=== PATIENT | female | born 1985 | race American Indian/Alaskan Native ===

== ENCOUNTER 2017-12-10 19:03 | Emergency (ER) | payer SELFPAY ==
[2017-12-10 19:26] VITALS: BP 137/71
--- NOTE | 2017-12-10 22:37 | Emergency Department Report ---
ED ENT HPI - General Chief complaint: Sore Throat Stated complaint: TONGUE/THROAT SWOLLEN Time Seen by Provider: 12/10/17 22:01 Source: patient Mode of arrival: Ambulatory Limitations: No Limitations - History of Present Illness Initial comments: This is a 32-year-old -[place] female presents with sore throat for 4 days. Patient reports he feels like her tongue is swollen and severe Pain with Swallowing. Patient states she is having difficulty swallowing solid foods but able to drink liquids. She is taking Tylenol for pain control with no improvement of symptoms. Patient reports swelling was one week ago with upper respiratory infection. Patient denies history, fever, chest pain, shortness of breath, body aches, sinus congestion, cough, and nausea or vomiting. MD complaint: sore throat, difficulty swallowing Onset/Timin -: days(s) Severity: moderate Severity scale (0 -10): 7 Quality: aching Consistency: constant Improves with: none Worsens with: swallowing, eating Associated Symptoms: pain with swallowing, sore throat - Related Data Previous Rx's Medication Instructions Recorded Last Taken Type HYDROcodone/APAP 5-325 [[place] 1 each PO Q6HR PRN #20 tablet 05/08/14 Unknown Rx 5-325 mg TAB] Methocarbamol [Robaxin] 750 mg PO Q8H PRN #21 tablet 05/08/14 Unknown Rx Acetaminophen/Codeine [Tylenol 1 tab PO Q6H PRN #10 tab 12/10/17 Unknown Rx /Codeine # 3 tab] Penicillin V Potassium 500 mg PO BID 10 Days #20 tablet 12/10/17 Unknown Rx Allergies Allergy/AdvReac Type Severity Reaction Status Date / Time No Known Allergies Allergy Verified 05/08/14 14:16 ED Dental HPI - General Chief complaint: Sore Throat Stated complaint: TONGUE/THROAT SWOLLEN Time Seen by Provider: 12/10/17 22:01 Source: patient Mode of arrival: Ambulatory Limitations: No Limitations - Related Data Previous Rx's Medication Instructions Recorded Last Taken Type HYDROcodone/APAP 5-325 [[place] 1 each PO Q6HR PRN #20 tablet 05/08/14 Unknown Rx 5-325 mg TAB] Methocarbamol [Robaxin] 750 mg PO Q8H PRN #21 tablet 05/08/14 Unknown Rx Acetaminophen/Codeine [Tylenol 1 tab PO Q6H PRN #10 tab 12/10/17 Unknown Rx /Codeine # 3 tab] Penicillin V Potassium 500 mg PO BID 10 Days #20 tablet 12/10/17 Unknown Rx Allergies Allergy/AdvReac Type Severity Reaction Status Date / Time No Known Allergies Allergy Verified 05/08/14 14:16 ED Review of Systems ROS: Stated complaint: TONGUE/THROAT SWOLLEN Other details as noted in HPI Constitutional: denies: chills, fever ENT: throat pain. denies: ear pain, dental pain, hearing loss, epistaxis, congestion Respiratory: denies: cough, shortness of breath, wheezing Cardiovascular: denies: chest pain, palpitations Gastrointestinal: denies: abdominal pain, nausea, vomiting, diarrhea, constipation Skin: denies: rash, lesions Neurological: denies: headache, weakness, numbness, paresthesias Psychiatric: denies: anxiety, depression ED Past Medical Hx - Past Medical History Previous Medical History?: No - Surgical History Past Surgical History?: No - Social History Smoking Status: Never Smoker Substance Use Type: None - Medications Home Medications: Home Medications Medication Instructions Recorded Confirmed Last Taken Type HYDROcodone/APAP 5-325 [[place] 1 each PO Q6HR PRN #20 tablet 05/08/14 Unknown Rx 5-325 mg TAB] Methocarbamol [Robaxin] 750 mg PO Q8H PRN #21 tablet 05/08/14 Unknown Rx Acetaminophen/Codeine [Tylenol 1 tab PO Q6H PRN #10 tab 12/10/17 Unknown Rx /Codeine # 3 tab] Penicillin V Potassium 500 mg PO BID 10 Days #20 tablet 12/10/17 Unknown Rx ED Physical Exam - General Limitations: No Limitations General appearance: alert, in no apparent distress - ENT ENT exam: Present: mucous membranes moist, TM's normal bilaterally, normal external ear exam. Absent: normal orophraynx (tonsils enlarged and erythematous , no exudate erythematous oropharynx, malodorous breath, uvula midline) - Neck Neck exam: Present: normal inspection, full ROM, lymphadenopathy. Absent: tenderness, meningismus, thyromegaly - Respiratory Respiratory exam: Present: normal lung sounds bilaterally. Absent: respiratory distress - Cardiovascular Cardiovascular Exam: Present: regular rate, normal rhythm. Absent: systolic murmur, diastolic murmur, rubs, gallop - GI/Abdominal GI/Abdominal exam: Present: soft, normal bowel sounds. Absent: organomegaly, mass - Neurological Exam Neurological exam: Present: alert, oriented X3 - Psychiatric Psychiatric exam: Present: normal affect, normal mood - Skin Skin exam: Present: warm, dry, intact, normal color. Absent: rash ED Course Vital Signs 12/10/17 19:21 Temperature 98.1 F Pulse Rate 98 H Respiratory 18 Rate Blood Pressure 137/71 O2 Sat by Pulse 100 Oximetry ED Medical Decision Making - Medical Decision Making This is a 32 y.o. female that presents with sore throat for 3 days. Patient examined by me and stable. Patient in slight distress on exam, difficult getting strep culture. Tonsils are erythematous and enlarged with no exudate, uvula midline, and no tonsillar abscess. Rapid strep obtained and negative. Vitals normal. Treating per physical exam for acute pharyngitis. Given bicillin I-A 1.2 mL IM once in ER. Start penicillin V 500 mg po bid x 10 days. Take tylenol or ibuprofen for pain. Discussed plan with patient and he agreed with plan to treat outpatient. Discharged home. Return to work tomorrow. Follow up with PCP in 48-72 hours. Critical care attestation.: If time is entered above; I have spent that time in minutes in the direct care of this critically ill patient, excluding procedure time. ED Disposition Clinical Impression: Sore throat Acute pharyngitis Qualifiers: Pharyngitis/tonsillitis etiology: unspecified etiology Qualified Code(s): J02.9 - Acute pharyngitis, unspecified Disposition: DC-01 TO HOME OR SELFCARE Is pt being admited?: No Does the pt Need Aspirin: No Condition: Stable Instructions: Strep Throat (ED) Additional Instructions: Expect symptoms to improve within 3 or 4 days. There is no need for bed rest or isolation. Use Tylenol or ibuprofen for symptoms of sore throat, headache, and fever. Return to work in 24 hours of taking antibiotics. Follow up with Primary Care Provider in 48-72 hours. Prescriptions: Acetaminophen/Codeine [Tylenol /Codeine # 3 tab] 1 tab PO Q6H PRN #10 tab PRN Reason: Pain , Severe (7-10) Penicillin V Potassium 500 mg PO BID 10 Days #20 tablet Referrals: [facility] [place] [Outside] - 3-5 Days [facility] [Outside] - 3-5 Days [facility] [Outside] - 3-5 Days Forms: Work/School Release Form(ED) Time of Disposition: 23:21 Print Language: LITHUANIAN
[2017-12-10] MEDS ORDERED: ULTRAM PO ONE (23:10)
[2017-12-10] MEDS ORDERED: BICILLIN L-A IM ONE (23:10)
== END 2017-12-11 00:14 | disposition home or self-care (01) ==
LOC: ED 19:03
DX: J02.9 Acute pharyngitis, unspecified (principal)
CPT/HCPCS: 87116; 87430; 96372; 99283; J0561